=== PATIENT | male | born 1955 | race Caucasian/White ===

== ENCOUNTER → 2020-06-20 | Outpatient (CLI) | payer MEDICARE ==
[2020-06-20 12:43] LABS: CREATININE 1.3 mg/dL (0.6-1.3)
== END ==
LOC: M.LAB 12:00 → M.CT 13:00
PROVIDERS: ATTEND Orthopaedic Surgery
DX: M51.36 Other intervertebral disc degeneration, lumbar region (principal); M43.27 Fusion of spine, lumbosacral region; M25.78 Osteophyte, vertebrae; M48.061 Spinal stenosis, lumbar region without neurogenic claudication